=== PATIENT | female | born 1965 | race Caucasian/White ===

== ENCOUNTER 2025-04-11 20:58 | Emergency (ER) | payer OTHER, SELFPAY ==
--- NOTE | ~2025-04-11 | CT_ITS ---
CLINICAL HISTORY: LLQ pain, hx stones CT abdomen and pelvis without contrast Comparison: None provided Findings: CT abdomen: No focal areas of consolidation within the lung bases. Bones are osteopenic. No acute fracture. [id number] convex left upper lumbar curvature. Patient has undergone prior sternotomy. Dense calcification of the mitral valve and coronary arteries. Dense vascular calcification extends into the thoracic aorta, abdominal aorta, renal arteries, mesenteric arteries, and iliac arteries. 6 mm densely calcified dependent gallstone within the gallbladder without gallbladder wall thickening or pericholecystic fluid. No focal hepatic lesion on the unenhanced exam. No focal splenic lesions. No pancreatic lesion. Right kidney is surgically absent. Bowel loops are seen within the nephrectomy bed. Adrenal glands are unremarkable. Compensatory hypertrophy of the left kidney. There is moderate left hydronephrosis with parapelvic cysts. 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 Several small stones are seen within the left kidney measuring up to 4 mm in size. No perinephric stranding. No ureteral calculi. No free air. CT pelvis: Moderate fluid distention of the stomach. There are fluid-filled loops of nondilated small bowel throughout the abdomen and pelvis with small bowel wall thickening. Liquid stool seen throughout the colon extending from the cecum to the rectum. Scattered diverticuli within the colon without findings of diverticulitis. IMPRESSION: 1. Several left renal calculi without acute obstructive phenomenon. No left ureteral calculi. 2. Surgically absent right kidney. 3. Fluid-filled large and small bowel throughout the abdomen and pelvis most characteristic of an infectious or inflammatory enterocolitis. This document has been electronically signed by: Mike Botello MD on 04/12/2025 00:52:30
[2025-04-11 21:02] VITALS: BP 146/63; PULSE 114; RESP 22; TEMP 36.6; O2SAT 100; BMI 22.1
--- NOTE | 2025-04-11 21:25 | ECG_ITS ---
Test Reason : tachy Blood Pressure : */* mmHG Vent. Rate : 95 BPM Atrial Rate : 95 BPM P-R Int : 148 ms QRS Dur : 88 ms QT Int : 362 ms P-R-T Axes : 77 91 3 degrees QTcB Int : 454 ms Normal sinus rhythm Right atrial enlargement Rightward axis Left ventricular hypertrophy with repolarization abnormality ( Sokolow-Caldwell , Romhilt-Fabian ) Abnormal ECG No previous ECGs available Referred By: Emma Rosario Electronically Signed By: Saravanan Patten
[2025-04-11 21:41] LABS: Hematocrit 47.3 % (37.0-47.0); Hemoglobin 15.0 g/dl (12.0-16.0); Imm Gran Abs Auto 0.05 X10*3/uL (0.00-0.03); Imm Gran Pct Auto 0.4 % (0.0-0.4); Lymphocytes Absolute Auto 2.0 X10*3/uL (1.2-4.9); MANUAL DIFF FLAG NO; Mean Corpuscular HGB Conc 31.7 g/dl (31.0-35.0); Mean Corpuscular Hemoglobin 28.4 pg (27.0-33.0); Mean Corpuscular Volume 89.6 fL (80.0-98.0); NRBC Abs Auto 0.000 X10*3/uL (0.0-0.012); NRBC Pct Auto 0.0 /100WBC (0.0-0.2); Platelet Count 246 X10*3/uL (160-400); Red Blood Count 5.28 X10*6/uL (4.20-5.50); White Blood Count 13.1 X10*3/uL (4.8-10.8)
[2025-04-11 22:00] LABS: Anion Gap 17 (12-20); Blood Urea Nitrogen 37 mg/dL (9-16); Calcium 10.9 mg/dL (8.4-10.2); Carbon Dioxide 26 mmol/L (22-29); Chloride 106 mmol/L (96-108); Creatinine Clr Calc Pharmacy 26.4; Estimated Glomerular Filt Rate 27; Potassium 5.2 mmol/L (3.3-5.1); Sodium 144 mmol/L (135-145)
[2025-04-11 22:07] LABS: Alanine Aminotransferase 29 U/L (0-31); Albumin Level 5.1 g/dL (3.5-5.0); Alkaline Phosphatase 126 U/L (39-117); Aspartate Amino Transferase 33 U/L (5-31); Total Protein 8.5 g/dL (6.5-8.0)
[2025-04-11] MEDS: Lactated Ringers 1,000 ML 999 ML IV (22:08)
--- OUTSIDE RECORDS SUMMARY | 2025-04-11 22:12 | XMS_ITS | Encounter Summary ---
Author Organization [facility] Address [address] [place] [address] Care Team Providers Care Ramp Agent Name Role Phone Henok Juarez Primary Care Provider Reason for Visit * Reason Onset Date Comments Other 07/23/2022 24 hours urine Encounter Details Date Type Department Care Team (Late st Contact Info) Description 07/23/2022 Telephone [facility] Doctors Urology [place] [address] [place] [address] [phone] Noel Nieto MD [address] [place], [place] [phone] Other (24 hours urine ) Social History Tobacco Use Types Packs/Day Years Used Date Smoking Tobacco: Never Smokeless Tobacco: Never Alcohol Use Standard Drinks/Week Comments Yes 0 (1 standard drink = 0.6 oz pur e alcohol) social PRAPARE - Transportation Answer Date Re corded In the past 12 months, has l ack of transportation kept you from medical appointments or from getting medications? No 07/2021 In the past 12 months, has l ack of transportation kept you from meetings, work, or from getting things needed for daily living? No 04/09/2022 Food Insecurity Answer Date Recorded Worried About Running Out of Food in the Last Ye ar Not on file 03/14/2022 Ran Out of Food in the Last Year Not on file 03/14/2022 Do you have any concerns reg arding your ability to purchase food for yourself and/or your family? Never true 03/14/2022 Comments No Sex and Gender Information Value Date Recorded Sex Assigned at Female 03/08/2022 1:04 PM EDT Legal Sex Female 3:04 AM EST Gender Identity Female 03/08/2022 1:04 PM EDT Sexual Orientation Straight 04/08/2022 10 :16 PM EDT documented as of this encounter Functional Status * Communicable Disease Screening Question Answer Date of Assessment Author Status Do you have any of the following symptoms? Unable to Assess 07/24/2022 8:44 AM EST Nell Smith Active * Is the person deaf or does he/she have serious difficulty hearing? Answer Date of Assessment Author Status No 05/25/2022 6:[address] Bahena RN Active * Is this person blind or does he/she have serious difficulty seeing even when wearing glasses? Answer Date of Assessment Author Status No 05/25/2022 6:[address] Hager RN Active * Does this person have serious difficulty walking or climbing stairs? Answer Date of Assessment Author Status No 05/25/2022 6:[address] Hager RN Active * Does this person have difficulty dressing or bathing? Answer Date of Assessment Author Status No 05/25/2022 6:[address] Hager RN Active * Because of a physical, mental, or emotional condition, does this person have difficulty doing errands alone such as visiting a doctor's office or shopping? Answer Date of Assessment Author Status No 05/25/2022 6:[address] Hager RN Active documented as of this encounter Mental Status * Because of a physical, mental, or emotional condition, does this person have serious difficulty concentrating, remembering, or making decisions? Answer Entry Date Author Status No 05/25/2022 6:[address] Hager RN Active documented in this encounter Progress Notes * Stefany Shin - 07/23/2022 9:30 AM EST Provider: Noel John Patient: Kellie Plata Call back number: [phone] Patient Is calling to state she sent in the 24 hour urine test and hasn't heard anything about the results in a few weeks. Patient would like to know if results were received and what her next steps are. Please advise ???Caller advised of the turnaround time of 3 business days?? documented in this encounter Plan of Treatment Not on file documented as of this encounter Visit Diagnoses Not on filedocumented in this encounter Care Teams Ramp Agent Relationship Specialty Start Date End Date Henok Juarez PCP - General 11/15/21 documented as of this encounter
--- OUTSIDE RECORDS SUMMARY | 2025-04-11 22:12 | XMS_ITS | Clinical Summary ---
Author Organization [facility], [facility], and [facility] Address [address] [place] [address] [place] [address] Care Team Providers Care Clinical Mental Health Counselor Name Role Phone Grant Saldana MD Unavailable [phone] Allergies Active Allergy Reactions Criticality Noted Date Comments Statins Muscle pain Low 04/20/2023 Medications apixaban 5 MG TabletIndication s:Anticoagulant Therapy Take 1 tablet (5 mg) by mouth 2 Times a Day for 30 days. 60 tablet 07/03/2023 Active aspirin 81 MG Tablet ChewableIndicati ons:Cardiovascul ar Risk Reduction Take 1 tablet (81 mg) by mouth Daily for 30 days. 30 tablet 07/03/2023 Active ezetimibe 10 MG TabletIndication s:Hyperlipidemia Take 1 tablet (10 mg) by mouth Daily for 30 days. 30 tablet 07/03/2023 Active levothyroxine 112 MCG TabletIndication s:Hypothyroidism Take 1 tablet (112 mcg) by mouth Daily for 30 days. 30 tablet 07/03/2023 Active famotidine 20 MG TabletIndication s:Stress Ulcer Prophylaxis Take 1 tablet (20 mg) by mouth Daily for 30 days. 30 tablet 07/04/2023 Active metoprolol succinate 100 MG Tablet ER 24 HourIndications: Hypertension Take 1 tablet (100 mg) by mouth Nightly for 30 days. 30 tablet 07/03/2023 Active furosemide (LASIX) 20 MG TabletIndication s:Edema Take 1 tablet (20 mg) by mouth Daily for 7 days. 7 tablet 07/03/2023 Active Active Problems Problem Noted Date Diagnosed Date S/P CABG x 4 06/26/2023 CKD (chronic kidney disease) 06/26/2023 Chronic a-fib 06/26/2023 Acquired hypothyroidism 06/26/2023 Resolved Problems Problem Noted Date Diagnosed Date Resolved Date SU (acute kidney injury) 06/28/2023 Acute post-operative pain 06/28/2023 Coronary artery disease, uns pecified vessel or lesion type, unspecified whether angina present, unspecified whether [place] or transplanted heart 06/26/2023 07/03/2023 Peripheral vasodilation 06/26/202306/09 Acute pulmonary insufficiency 06/26/2023 07/03/2023 Coronary artery disease 04/10/202306/09 Family History Medical History Relation Comments CAD Paternal Grandfather Relation Status Comments Paternal Grandfather Social History Tobacco Use Types Packs/Day Years Used Date Smoking Tobacco: Never Smokeless Tobacco: Never Tobacco Cessation:Counseling Given: Not Answered Alcohol Use Standard Drinks/Week Comments Not Currently 0 (1 standard drink = 0.6 oz pur e alcohol) social [employer] Utilities Answer Date Recorded In the past 12 months has th e electric, gas, oil, or water company threatened to shut off services in your home? No 07/03/2023 Hunger Vital Sign Answer Date Recorded Within the past 12 months, y ou worried that your food would run out before you got the money to buy more. Never true 07/03/19 24 Within the past 12 months, t he food you bought just didn't last and you didn't have money to get more. Never true 07/03/2023 PRAPARE - Transportation Answer Date Re corded In the past 12 months, has l ack of transportation kept you from medical appointments or from getting medications? No 07/03/2023 Lack of Transportation (Non-Medical) Not on file 07/03/2023 Housing Stability Vital Sign Answer Bi e Recorded Unable to Pay for Housing in the Last Year Not o n file 07/03/2023 Number of Places Lived in the Last Year Not on f ile 07/03/2023 In the last 12 months, was t here a time when you did not have a steady place to sleep or slept in a half-way (including now)? No 07/03/2023 Comments No Sex and Gender Information Value Date Recorded Sex Assigned at Not on file Legal Sex Female 9:53 AM EDT Gender Identity Not on file Sexual Orientation Not on file Last Filed Vital Signs Vital Sign Reading Time Taken Comments Blood Pressure 144/61 07/03/2023 12:00 PM EST Pulse 90 07/03/2023 9:00 AM EST Temperature 36.5 C (97.7 F) 07/03/2023 12:13 PM EST Respiratory Rate 18 07/03/2023 12:00 PM EST Oxygen Saturation 98% 07/03/2023 12:00 PM EST Inhaled Oxygen Concentration - - Weight 54.8 kg (120 lb 13 oz) 07/03/2023 5:00 AM EST Height 162.6 cm (5' 4.02 ) 06/26/2023 4:00 PM ES T Body Mass Index 20.73 06/26/2023 4:00 PM EST Plan of Treatment Health Maintenance Due Date Last Done Comments HIV SCREENING 1976 Hepatitis C screening 1981 IMM: DTap/ Tdap/ Td (1 - Tdap) 1982 Pneumococcal Vaccine: 50+ Years (1 of 2 - PCV) 1982 Cervical Cancer Screening 1993 HPV/Cotest 1993 Pap Smear 1993 Screening Mammography for Breast Cancer 2003 Cologuard 2008 Colonoscopy 2008 Colorectal Cancer Screening 2008 FOBT/FIT 2008 Flex-Sigmoidoscopy or CT Colonography 2008 IMM: Zoster Vaccine (Shingles) (1 of 2) 2013 IMM: RSV (1 - Risk 60-74 years 1-dose series) 2023 COVID-19 Vaccine ( season) 2025 04/11/2021, 07/02/2020, 06/05/2020 IMM: Influenza (#1) 2025 05/22/2021, 03/26/2020, 04/05/2019, Additional history exists LIPID SCREENING 07/02/2028 07/02/2023, 07/01/2023 IMM: Meningococcal B Aged Out No long er eligible based on patient's age to complete this topic Medical Devices Implanted Type Area Desk Director Device Identifier Shelf Expiration Date Model / Serial / Lot Device Closure Proglide 6f With Revised Suture ([id number]) - [id number] - [id number] Implanted:Qty: 1 on 04/22/2023 by Angie Martinez MD at [facility] Implant [employer] [facility] 04/22/2026 [id number] / [id number] / [id number] Procedures Procedure Name Priority Date/Time Associated Diagnosis Comments LIPID PROFILE DAILY DRAW 07/02/2023 8:03 AM EST from Last 3 Months or Most Recently Relevant to Health Maintenance Results * (ABNORMAL) LIPID PROFILE (07/02/2023 8:03 AM EST) Cholesterol Total 183 mg/dL 024 10:51 AM EST [facility] Comment: The National Cholesterol Education Program classifies cholesterol levels as: < 200 mg/dl Desirable 200 - 239 mg/dl Borderline High > 239 mg/dl High Triglyceride 338(H) <=149 mg/dL 07/02/2023 10:51 AM EST [facility] HDL Cholesterol 34(L) 40 - 60 mg/dL 07/02/2023 10:51 AM EST [facility] Comment: HDL <40mg/dL Low HDL >=60mg/dL High LDL Cholesterol 81 mg/dL 10:51 AM EST [facility] Comment:Ranges depend on ind ividual patient factors; see 2013 ACC/AHA Guideline on the Treatment of Blood Cholesterol. Chol HDL Ratio 5.4(H) 0.0 - 4.9 07/02/2023 10:51 AM EST [facility] Blood 07/02/2023 8:03 AM EST 07/02/2023 9:47 AM EST Narrative Resulting Agency Comment LIPID Grant Saldana MD LAB-CHEMISTRY Final Result [facility] [address] [address] [facility] [address] [address] from Last 3 Months or Most Recently Relevant to Health Maintenance Insurance JULI FUNK Care Teams Clinical Mental Health Counselor Relationship Specialty Start Date End Date Grant Saldana MD [address] [place] [id number] Surgery - Cardiothoracic - Cardiac 05/16/23
--- OUTSIDE RECORDS SUMMARY | 2025-04-11 22:12 | XMS_ITS | Encounter Summary ---
Author Organization [facility] Address [address] [place] [address] Care Team Providers Care Automotive Window Tinter Name Role Phone Henok Juarez Primary Care Provider [phone] Reason for Visit * Reason Onset Date Comments Other 06/17/[address] ABD/PEL WO IV OR [place] Encounter Details Date Type Department Care Team (Late st Contact Info) Description 06/17/2022 Telephone [facility] Doctors Urology [place] [address] [place], [place] [phone] Noel Nieto MD [address] [place], [place] [phone] Other (Auth needed for CT ABD/PEL WO IV OR [place] ) Social History Tobacco Use Types Packs/Day [...] you have any of the following symptoms? None of these 06/18/2022 9:02 AM EST Linnette Cortez Active * Is the person deaf or [...] documented in this encounter Progress Notes * Fang Helton MA - 06/17/2022 11:20 AM EST auth number [id number] exp 07/16/22 * Stefany Shin - 06/17/2022 9:24 AM EST Provider: Noel John Patient: Kellie Plata Call back number: [phone] Caller: urszula [id number] Urszula pre reg Is calling to state the procedure CT ABD/PEL WO IV [place] needs auth [id number] sched for 06/18. Procedure was put in as no auth needed without any notes. Pre reg needs notes if no auth isneeded. Urszula states he spoke with tod from [facility] and they state auth is needed. Please advise ???Caller advised of the turnaround time of 3 business days?? documented in this encounter Plan of Treatment Not on file documented as of this encounter Visit Diagnoses Not on filedocumented in this encounter Care Teams Automotive Window Tinter Relationship Specialty Start Date End Date Henok Juarez PCP - General 11/15/21 documented as of this encounter
--- OUTSIDE RECORDS SUMMARY | 2025-04-11 22:12 | XMS_ITS | Clinical Summary ---
Author Organization [facility] Address [address] [place] [address] Care Team Providers Care Electric Meter Setter Name Role Phone Henok Juarez Primary Care Provider [phone] Allergies Active Allergy Reactions Criticality Noted Date Comments Statins Other (See Comments) 03/18/2022 Arthritis like limbs Sulfamethoxazole 02/19/2012 Trimethoprim 02/19/2012 Medications carvedilol (COREG) 3.125 MG tablet Take 6.25 mg by mouth in the morning and 6.25 mg in the evening. Take with meals. Active levothyroxine (SYNTHROID, LEVOTHROID) 112 MCG tablet Take by mouth daily before breakfast. Active ezetimibe (ZETIA) 10 MG tablet Take 10 mg by mouth in the morning. Active Alirocumab (PRALUENT) 150 MG/ML SOAJ Inject 150 mcg into the skin. Active aspirin 81 MG EC tablet Take 81 mg by mouth in the morning. Active Active Problems Problem Noted Date Diagnosed Date New onset a-fib 04/09/2022 Elevated troponin 04/09/2022 Hyperlipemia 04/09/2022 Demand ischemia 04/09/2022 Atrial fibrillation with RVR 04/09/2022 Solitary kidney, acquired 04/09/2022 H/O heart artery stent 03/14/2022 Preop exam for internal medicine 03/14/2022 Hydronephrosis with renal calculous obstruction 03/08/2022 Chest pain 02/07/2022 S/P cardiac catheterization 02/07/2022 Nonrheumatic aortic valve stenosis 01/27/2022 CAD (coronary artery disease) 08/21/2020 Familial hypercholesteremia 08/17/2020 Hypothyroidism 01/27/2019 Family History Medical History Relation Comments Heart disease Brother Heart disease Father Peripheral vascular disease Mother Relation Status Comments Brother Alive Daughter Alive adopted both chi ldren. Father Mother Alive Sister Alive Son Alive Social History Tobacco Use Types Packs/Day Years [...] Orientation Straight 04/08/2022 10 :16 PM EDT Last Filed Vital Signs Vital Sign Reading Time Taken Comments Blood Pressure 139/87 05/25/2022 12:43 PM EST Pulse 88 05/25/2022 12:43 PM EST Temperature 37.4 C (99.3 F) 05/25/2022 12:43 PM EST Respiratory Rate 16 05/25/2022 12:43 PM EST Oxygen Saturation 100% 05/25/2022 12:43 PM EST Inhaled Oxygen Concentration - - Weight 57.2 kg (126 lb) 05/25/2022 12:43 PM EST Height 160 cm (5' 3 ) 05/25/2022 12:43 PM EST Body Mass Index 22.32 05/25/2022 12:43 PM EST Plan of Treatment Health Maintenance Due Date Last Done Comments COLON CANCER SCREENING 10 YE AR COLONOSCOPY 1963 Cervical Cancer Screening 5 Year 1963 FIT-DNA 1963 MMR Vaccines (1 of 1 - Standard series) 1964 DTaP/Tdap/Td Vaccines (1 - Tdap) 1982 BREAST CANCER SCREENING EVER Y 2 YEARS 2003 Zoster Vaccine (1 of 2) 2013 COVID-19 Vaccine (4 - 2024-2 6 season) 2025 04/11/2021, 07/02/2020, 06/05/2020 Influenza Vaccine (#1) 2025 RSV Vaccine , or 60 years and older (1 - 1-dose 75+ series) 2038 HIB Vaccines Aged Out No longer eligi ble based on patient's age to complete this topic HPV Vaccine (No Doses Required) Completed Hepatitis A Vaccines Aged Out No long er eligible based on patient's age to complete this topic Hepatitis B Vaccines Aged Out No long er eligible based on patient's age to complete this topic IPV Vaccines Aged Out No longer eligi ble based on patient's age to complete this topic Meningococcal B Vaccine Aged Out No l onger eligible based on patient's age to complete this topic Meningococcal Vaccine Aged Out No lit joaquina eligible based on patient's age to complete this topic Pneumococcal Vaccine: Pediatrics (0 to 5 Years) and At-Risk Patients (6 to 64 Years) Aged Out No longer eligible b ased on patient's age to complete this topic Rotavirus Vaccine Aged Out No longer eligible based on patient's age to complete this topic Medical Devices Implanted Type Area Pie Maker Machine Device Identifier Shelf Expiration Date Model / Serial / Lot Synergy Xd Mr Us [id number] - [id number] Implanted:Qty: 1 on 02/07/[address] Lang MD at [facility] Drug Eluting Stent [employer] 07/11/2022 [id number] / / [id number] Synergy Xd Mr Us [id number] - [id number] Implanted:Qty: 1 on 02/07/[address] Lang MD at [facility] Drug Eluting Stent [employer] 08/01/2022 [id number] / / [id number] Explanted Type Area Pie Maker Machine Device Identifier Shelf Expiration Date Model / Serial / Lot Stent Ureteral [id number] Universa Soft Set Monofilament Tether Hydrophilic Coating [[id number]] - [id number] Implanted:Qty: 1 on 03/08/2022 by Noel Nieto MD at [facility] Explanted:Qty: 1 on 03/18/2022 at [facility] Left: Ureter [employer] 12/23/2024 [id number] / / [id number] Insurance CARE Advance Directives For more information, please contact: [phone] * Full Code (Latest Code Status on File) Date Activated Date Inactivated Comments 04/09/2022 3:54 AM 04/09/2022 4:47 PM * Full Code Date Activated Date Inactivated Comments 03/08/2022 2:41 PM 03/09/2022 3:43 PM * Full Code Date Activated Date Inactivated Comments 02/07/2022 5:37 PM 02/08/2022 2:37 PM Healthcare Agents on File Name Relationship Healthcare Agent [facility] Communication Dayo Plata Spouse Health Care Agent Care Teams Electric Meter Setter Relationship Specialty Start Date End Date Henok Juarez PCP - General 11/15/21
--- OUTSIDE RECORDS SUMMARY | 2025-04-11 22:12 | XMS_ITS | Encounter Summary ---
Author Organization [facility] Address [address] [place] [id number] Care Team Providers Care Tabulating Clerk Name Role Phone Henok Juarez Primary Care Provider [phone] Reason for Visit * Reason Onset Date Comments Other 03/11/2022 Encounter Details Date Type Department Care Team (Late st Contact Info) Description 03/11/2022 Telephone [facility] Doctors [facility] [place] [address] [place] [id number] Noel Nieto MD [address] [place] [id number] Other Social History Tobacco Use Types Packs/Day Years Used Date Smoking Tobacco: Never Smokeless Tobacco: Never Alcohol Use Standard Drinks/Week Comments Not Currently 0 (1 standard drink = 0.6 oz pur e alcohol) Food Insecurity Answer Date Recorded Worried About [...] as of this encounter Functional Status * Question Answer Date of Assessment Author Status Living Status With Spouse 03/14/2022 9:01 AM EDT Clara Moyer, RN Active Support Systems Family Members 03/14/2022 9:01 AM Marifer Klein RN Active Assistance Needed no 03/14/2022 9:01 AM Marifer Aguirre RN Active Patient expects to be discharged to: home 03/14/2022 9:01 AM Marifer Aguirre RN Active * Contrast Pre-Assessment Question Answer Date of Assessment Author Status History of Allergy Reaction no 03/13/2022 4:13 PM EDT Deshawn Mane RN Active Premedication Required No 03/13/2022 4:13 PM EDT Deshawn Le RN Active * CAGE-AID Questionnaire Question Answer Date of Assessment Author Status Have you ever felt that you ought to cut down on your drinking or drug use? 0 03/14/2022 9:09 AM Marifer Aguirre RN A ctive Have people annoyed you by criticizing your drinking or drug use? 0 03/14/2022 9:09 AM Marifer Aguirre RN Active Have you ever felt bad or guilty about your drinking or drug use? 0 03/14/2022 9:09 AM Marifer Aguirre RN Active Have you ever had a drink or used drugs first thing in the morning to steady your nerves or to get rid of a hangover? 0 03/14/2022 9:09 AM Demetri Aguirre RN Active Able to Assess Patient for CAGE-AID Screening? Yes 03/14/2022 9:09 AM Marifer Aguirre RN Act matt CAGE-AID Score 0 03/14/2022 9:09 AM Clara Aguirre RN Active * Question Answer Date of Assessment Author Status BP 131/75 03/14/2022 9:02 AM Marifer Aguirre RN Active Temp 98.2 03/14/2022 9:02 AM Marifer Aguirre RN Active Temp src Oral 03/14/2022 9:02 AM Marifer Aguirre RN Active Pulse 92 03/14/2022 9:02 AM Marifer Aguirre RN Active Resp 20 03/14/2022 9:02 AM Marifer Aguirre RN Active Heart Rate Source Monitor 03/14/2022 9:02 AM Marifer Aguirre RN Active BP Location Right Arm 03/14/2022 9:02 AM Demetri Aguirre RN Active BP Method Automatic 03/14/2022 9:02 AM Marifer Aguirre RN Active Patient Position Sitting 03/14/2022 9:02 AM Marifer Aguirre RN Active * Oxygen Therapy Question Answer Date of Assessment Author Status SpO2 100 03/14/2022 9:02 AM Marifer Aguirre RN Active O2 Device None (Room air) 03/14/2022 9:02 AM Marifer Aguirre RN Active * Height and Weight Question Answer Date of Assessment Author Status Height 63 03/14/2022 9:02 AM Marifer Aguirre RN Active Weight 1970 03/14/2022 9:02 AM Marifer Aguirre RN Active Weight Method Standing 03/14/2022 9:02 AM Hugh Aguirre RN Active * Psychosocial Question Answer Date of Assessment Author Status Psychosocial (WDL) WDL 03/14/2022 9:09 AM Marifer Moraes RN Active * Cardiac Question Answer Date of Assessment Author Status Cardiac (WDL) WDL 03/14/2022 9:09 AM Hugh Aguirre RN Active * Respiratory Question Answer Date of Assessment Author Status Respiratory (WDL) WDL 03/14/2022 9:09 AM Marifer Aguirre RN Active * Charting Type Question Answer Date of Assessment Author Status Charting Type PST assessment 03/14/2022 9:09 AM Marifer Aguirre RN Active * Advance Directives (For Healthcare) Question Answer Date of Assessment Author Status Is patient an organ donor? No 03/14/2022 9:11 AM Marifer Aguirre RN Active Healthcare Advance Directive No, patient does not have an advance directive for healthcare treatment 03/14/2022 9:11 AM Marifer Aguirre RN Active Information Provided to Patient/Family Member, on Healthcare Advance Directives No 03/14/2022 9:11 AM Marifer Aguirre RN Active * Retired Screening (Read-Only) Use New Nutrition Screen below Question Answer Date of Assessment Author Status Poor Oral Intake for Four or More Days Prior to Admission 2 03/14/2022 9:09 AM Demetri Aguirre RN Active Pressure Ulcer or Non-Healin g Wound Stage 2 or Greater 2 03/14/2022 9:09 AM Marifer Aguirre R N Active Prior Bariatric Surgery? No 03/14/2022 9:09 AM Marifer Aguirre RN Active * Abuse Assessment Screen (Conduct in private if possible) Question Answer Date of Assessment Author Status Physical Abuse/Neglect Denies 03/14/2022 9:09 AM Marifer Romero RN Active Verbal/Emotional Abuse Denies 03/14/2022 9:09 AM Marifer Romero RN Active * Neurological Question Answer Date of Assessment Author Status Neuro (WDL) WDL 03/14/2022 9:09 AM Demetri Aguirre RN Active * Assistive Devices Question Answer Date of Assessment Author Status Assistive Devices Commode 03/14/2022 9:09 AM Marifer Aguirre RN Active * Pre Procedure COVID-19 Screening Call Question Answer Date of Assessment Author Status Symptomatic, NOT tested? No 03/14/2022 8:54 AM Marifer Aguirre RN Active COVID-19 TEST + No 03/14/2022 8:54 AM Marifer Aguirre RN Active * Values / Beliefs Question Answer Date of Assessment Author Status Do You Wish To Declare A Sikhism? Religious 03/14/2022 9:09 AM Marifer Aguirre RN Active * Question Answer Date of Assessment Author Status Do you feel safe at home? 1 03/14/2022 9:00 AM Marifer Lovell RN Active * Communicable Disease Screening Question Answer Date of Assessment Author Status Do you have any of the following symptoms? None of these 03/14/2022 8:00 AM EDT Arminda Lewis Activ e * ADL Screening Question Answer Date of Assessment Author Status Dressing Independent 03/14/2022 9:09 AM Demetri Aguirre RN Active Toileting Independent 03/14/2022 9:09 AM Demetri Aguirre RN Active Transfers Independent 03/14/2022 9:09 AM Demetri Aguirre RN Active Ambulation Independent 03/14/2022 9:09 AM Demetri Aguirre RN Active * Question Answer Date of Assessment Author Status Does patient report a history of MDRO? No 03/14/2022 8:54 AM Marifer Aguirre RN Active Patient's description of admission reason kidney stones 03/14/2022 8:54 AM Marifer Aguirre RN Active Patient's Preferred Language? Swedish 03/14/2022 8:54 AM Marifer Aguirre RN Active Does patient need a language instructor? No 03/14/2022 8:54 AM Marifer Aguirre RN A ctive * Pneumococcal Vaccine Screen - Year Round Question Answer Date of Assessment Author Status Have you had a previous pneumonia vaccine? No 03/13/2022 4:14 PM Deshawn Mccall RN Act matt * Influenza Vaccine Screen - February 06 through November 05 Question Answer Date of Assessment Author Status Have you received the Influenza vaccine during the current flu season? No 03/13/2022 4:14 PM Deshawn Mccall RN Ac tive Does patient wish to receive vaccine? No 03/13/2022 4:14 PM Deshawn Mccall RN Active * Post Visit Call Information Question Answer Date of Assessment Author Status Phone number we can reach you? [phone] 03/14/2022 9:01 AM Marifer Aguirre RN Active Can we leave a message? Yes 03/14/2022 9:01 AM Marifer Aguirre RN Active * Blood Product Screening Question Answer Date of Assessment Author Status Does patient refuse blood products? No 03/14/2022 9:09 AM Marifer Aguirre RN Active * COVID Vaccine Screen Question Answer Date of Assessment Author Status Have you received the COVID vaccine? Yes 03/13/2022 4:14 PM Deshawn Mccall RN Active * Percent Weight Change Since Answer Date of Assessment Author Status 0 03/14/2022 9:02 AM Marifer Aguirre RN Active * Pain Assessment/Reassessment Question Answer Date of Assessment Author Status Pain Score 0 - No pain 03/14/2022 9:02 AM Demetri Aguirre RN Active Patient's Stated Pain Goal 5 03/14/2022 9:02 AM Marifer Aguirre RN Active Pain Assessment Tool Used? 0-10 03/14/2022 9:02 AM Marifer Aguirre RN Active * Daily Weight Change (g) Answer Date of Assessment Author Status 0 03/14/2022 9:02 AM Marifer Aguirre RN Active * Is the person deaf or does he/she have serious difficulty hearing? Answer Date of Assessment Author Status No 03/09/2022 12:33 PM Galdino Mcmanus RN A ctive * Is this person blind or does he/she have serious difficulty seeing even when wearing glasses? Answer Date of Assessment Author Status No 03/09/2022 12:33 PM Galdino Mcmanus RN A ctive * Does this person have serious difficulty walking or climbing stairs? Answer Date of Assessment Author Status No 03/09/2022 12:33 PM Galdino Mcmanus RN A ctive * Does this person have difficulty dressing or bathing? Answer Date of Assessment Author Status No 03/09/2022 12:33 PM Galdino Mcmanus RN A ctive * Because of a physical, mental, or emotional condition, does this person have difficulty doing errands alone such as visiting a doctor's office or shopping? Answer Date of Assessment Author Status No 03/09/2022 12:33 PM Galdino Mcmanus RN A ctive * Assistive Devices Question Answer Date of Assessment Author Status Assistive Devices Commode 03/14/2022 9:09 AM Marifer Aguirre RN Active * Question Answer Date of Assessment Author Status Dressing Independent 03/14/2022 9:09 AM Demetri Aguirre RN Active Toileting Independent 03/14/2022 9:09 AM Demetri Aguirre RN Active Transfers Independent 03/14/2022 9:09 AM Demetri Aguirre RN Active Ambulation Independent 03/14/2022 9:09 AM Demetri Aguirre RN Active * Pain Assessment/Reassessment Question Answer Date of Assessment Author Status Pain Score 0 - No pain 03/14/2022 9:02 AM Demetri Aguirre RN Active Pain Assessment Tool Used? 0-10 03/14/2022 9:02 AM Marifer Aguirre RN Active documented as of this encounter Mental Status * Question Answer Entry Date Author Status Site verified? Yes 03/14/2022 9:26 AM Marifer Aguirre RN Active Verify Patient's Name and Yes 03/14/2022 9:26 AM Marifer Aguirre RN Active Consents verified? No 03/14/2022 9: 26 AM Marifer Aguirre RN Active Name of physician/ clinician doing procedure Noel Nieto J 03/14/2022 9:26 AM Marifer Aguirre RN Active Procedure Laterality Left 03/14/2022 9:26 AM Marifer Aguirre RN Active Name of Procedure CYSTOSCOPY, LEFT URETEROSCOPY, STONE EXTRACTION, STENT PLACEMENT, POSSIBLE LITHOTRIPSY 03/14/2022 9:26 AM Marifer Aguirre RN Active * Question Answer Entry Date Author Status BP 131/75 03/14/2022 9:02 AM Marifer Aguirre RN Active Temp 98.2 03/14/2022 9:02 AM Marifer Aguirre RN Active Temp src Oral 03/14/2022 9:02 AM Marifer Aguirre RN Active Pulse 92 03/14/2022 9:02 AM Marifer Aguirre RN Active Resp 20 03/14/2022 9:02 AM Marifer Aguirre RN Active * Oxygen Therapy Question Answer Entry Date Author Status SpO2 100 03/14/2022 9:02 AM Marifer Aguirre RN Active O2 Device None (Room air) 03/14/2022 9:02 AM Marifer Aguirre RN Active * Question Answer Entry Date Author Status Height 63 03/14/2022 9:02 AM Marifer Aguirre RN Active Weight 1970 03/14/2022 9:02 AM Marifer Aguirre RN Active * Respiratory Question Answer Entry Date Author Status Respiratory (WDL) WDL 03/14/2022 9:09 AM Marifer Aguirre RN Active * Neurological Question Answer Entry Date Author Status Neuro (WDL) WDL 03/14/2022 9:09 AM Demetri Aguirre RN Active * Intimate Partner Violence Question Answer Entry Date Author Status Have you ever reported possible abuse? 8 03/14/2022 9:00 AM Marifer Aguirre RN Active Is there anything else you'd like to add or ask while we're on this topic? No 03/14/2022 9:00 AM Marifer Aguirre RN Active Provider must notifiy the Domestic Violence Coordinator if the pt identifies as a suspected or confirmed victim of domestic violence No 03/14/2022 9:00 AM Marifer Aguirre RN Ac tive Do you feel safe at home? 1 03/14/2022 9:00 AM Marifer Lovell RN Active Has anyone ever been physically or emotionally violent towards you? No 03/14/2022 9:00 AM Marifer Aguirre RN Ac tive Has anybody forced you to do something sexual that you didn't want to do? No 03/14/2022 9:00 AM Marifer Aguirre RN Acti ve What about hitting, kicking, choking, or physically hurting you? No 03/14/2022 9:00 AM Marifer Aguirre RN Active Is there anyone in your life now who is threatening or hurting you? No 03/14/2022 9:00 AM Marifer Aguirre RN Active * Question Answer Entry Date Author Status Does patient report a histor y of MDRO? No 03/14/2022 8:54 AM Marifer Aguirre RN Active Patient's Preferred Language? Swedish 03/14/2022 8:54 A M Marifer Aguirre RN Active Does patient need a language instructor? No 03/14/2022 8:54 AM Marifer Aguirre RN Active * Food Insecurity Question Answer Entry Date Author Status Do you have any concerns regarding your ability to purchase food for yourself and/or your family? No 03/14/2022 9:00 AM Marifer Aguirre RN Act matt * Pain Assessment/Reassessment Question Answer Entry Date Author Status Pain Score 0 - No pain 03/14/2022 9:02 AM Marifer Aguirre RN Active Patient's Stated Pain Goal 5 03/14 9:02 AM Marifer Aguirre RN Active Pain Assessment Tool Used? 0-10 03/14 9:02 AM EDT Marifer Moyer RN Active * Because of a physical, mental, or emotional condition, does this person have serious difficulty concentrating, remembering, or making decisions? Answer Entry Date Author Status No 03/09/2022 12:33 PM EDT Galdino Sosa RN A ctive documented in this encounter Progress Notes * Monica Denton - 03/11/2022 3:38 PM EDT Patient was scheduled for procedure 03/18/2022 with documented in this encounter Plan of Treatment Not on file documented as of this encounter Visit Diagnoses Not on filedocumented in this encounter Additional Health Concerns Infection Onset Date Last Indicated Resolved Time COVID-19 (Exposure) Comment:Patient was exposed to covid on 04/09/22 04/10/2022 04/10/2022 04/17/2022 12:51 AM EST documented as of this encounter Care Teams Tabulating Clerk Relationship Specialty Start Date End Date Henok Juarez PCP - General 11/15/21 documented as of this encounter
--- OUTSIDE RECORDS SUMMARY | 2025-04-11 22:12 | XMS_ITS | Encounter Summary ---
Author Organization [facility] Address [address] [place] [id number] Care Team Providers Care Insurance Biller Name Role Phone Henok Juarez Primary Care Provider [phone] Reason for Visit * Reason Onset Date Comments Other 03/11/2022 Pending MRI/ Sta t status please Encounter Details Date Type Department Care Team (Late st Contact Info) Description 03/11/2022 Telephone [facility] Doctors Urology [place] [address] [place] [address] [id number] Noel Nieto MD [address] [place] [address] Other (Pending MRI/ Stat status please) Social History Tobacco Use Types Packs/Day Years [...] Living Status With Spouse 03/14/2022 9:01 AM Clara Aguirre RN Active Support Systems Family Members 03/14/2022 [...] Date of Assessment Author Status Cardiac (WDL) WD 03/14/2022 9:09 AM Hugh Aguirre RN Active * Respiratory Question Answer Date of Assessment Author Status Respiratory (WDL) WD 03/14/2022 9:09 AM Marifer Aguirre RN Active [...] Status Do You Wish To Declare A Hinduism? Rastafari 03/14/2022 9:09 AM Marifer Aguirre RN Active [...] Marifer Aguirre RN Active Patient's Preferred Language? Grenadian 03/14/2022 8:54 AM Marifer Aguirre RN Active Does patient need a bacon de rinder? No 03/14/2022 8:54 AM Marifer Aguirre RN [...] Status Phone number we can reach you? [phone] 03/14/2022 9:01 AM Marifer Aguirre RN Active [...] Marifer Aguirre RN Active Patient's Preferred Language? Grenadian 03/14/2022 8:54 A M Marifer Aguirre RN Active Does patient need a bacon de rinder? No 03/14/2022 8:54 AM Marifer Aguirre RN [...] in this encounter Progress Notes * Fang Graham MA - 03/11/2022 11:55 AM EDT Lmom spoke with provider he stated its ok to have MRI in a month. We need about a week to work on auth * Leena Augustine - 03/11/2022 11:43 AM EDT Provider: Dr. Nieto Patient: Kellie Plata Call back number: [phone] Patient is requesting a call back in reference to pending MRI. Also she indicated that MRI won't beschedule for another month from now and so she is asking if provider can put order in as a Stat. Please follow up documented in this encounter Plan of Treatment Not on file documented as of this encounter Visit Diagnoses Not on filedocumented in this encounter Additional Health Concerns Infection Onset Date Last Indicated Resolved Time COVID-19 (Exposure) Comment:Patient was exposed to covid on 04/09/22 04/10/2022 04/10/2022 04/17/2022 12:51 AM EST documented as of this encounter Care Teams Insurance Biller Relationship Specialty Start Date End Date Henok Juarez PCP - General 11/15/21 documented as of this encounter
[2025-04-11 23:24] LABS: Appearance Urine Cloudy; Glucose Urine UA Negative (Negative); PH 5.5 (5.0-9.0); Specific Gravity - Urine 1.020 (1.005-1.025); UMIC TRIGGER UACC YES
--- NOTE | 2025-04-11 23:48 | ED.ABDPAIN ---
HPI - Abdominal Pain General Chief Complaint: Abdominal Pain Stated Complaint: sever left lower abd pain Time Seen by Provider: 04/11/25 21:15 Source: patient and family Mode of arrival: ambulatory Limitations: no limitations History of Present Illness ED Provider: Dr. 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 States she had pot roast for dinner with her mother who is not sick. [place] well until she was driving home then developed severe, sudden onset left lower quadrant abdominal pain that she describes as a stabbing sensation. Pain is nonradiating. Constant since it started but improved after Toradol here in the emergency department. Has been feeling well prior to tonight. Has plans to go on vacation where she is flying later today. Bowel movements have been loose but not specifically diarrhea. No hematochezia or melena. No dysuria or hematuria. She does have a history of kidney stones and feels this pain is different. Typically has pain in her back when she has a kidney stone. Denies chest pain, difficulty breathing, fevers, cough or cold-type symptoms. Related Data Previous Rx's ?Medication ?Instructions ?Recorded dicyclomine 20 mg tablet 20 mg PO TID #10 tabs 04/12/25 ondansetron 4 mg disintegrating 4 mg PO Q8H PRN nausea and 04/12/25 tablet vomiting #10 tabs Allergies Allergy/AdvReac Type Severity Reaction Status Date / Time No Known Allergies Allergy Verified 04/11/25 21:05 Review of Systems Review of Systems as per HPI, full review of systems performed and negative but for the above mentioned pertinent positives and negatives. Physical Exam ED Exam Exam: GENERAL: Ill-Appearing, appears uncomfortable. SKIN: Normal skin color for ethnicity, warm, dry, no rashes noted. HEENT: Normocephalic, atraumatic, no stridor, dry mucous membranes, dentition intact, EOMI, PERRLA. NECK: Soft, supple, full ROM, midline structures nontender, no step-offs, no deformities, no lymphadenopathy. CHEST: Heart regular tachycardia, no murmurs, symmetric chest rise and fall. PULMONARY: Clear to auscultation bilaterally, diminished at the bases, no labored breathing, no wheezes/rhales/rhonchi. ABDOMINAL: Soft, nondistended, left lower quadrant tenderness to palpation with voluntary guarding, positive bowel sounds in all quadrants, multiple surgical scars, no palpable mass. : Deferred. MUSCULOSKELETAL: Normal tone, full range of motion, no deformities, no peripheral edema. NEURO: Alert and oriented x3, CN II through XII intact, equal strength and sensation bilateral upper and lower extremities, no focal neurologic deficits. PSYCHIATRIC: Flat affect, fluid speech, good eye contact and appropriate demeanor. Vital Signs: Vital Signs - 24 hr 04/11/25 21:02 04/12/25 00:02 04/12/25 01:05 Temperature 98 F 97.9 F Pulse Rate 114 H 98 97 Respiratory Rate 22 H 15 16 Blood Pressure 146/63 H 137/75 153/66 H Pulse Oximetry 100 99 98 Oxygen Delivery Method Room Air Room Air 04/12/25 01:20 Temperature 97.9 F Pulse Rate 97 Respiratory Rate 16 Blood Pressure 153/66 H Pulse Oximetry 98 Oxygen Delivery Method Room Air BMI result Body Mass Index 22.1 Medical Decision Making Medical Decision Making MDM Narrative: This patient presents today with a chief complaint of abdominal pain. Differential diagnosis for this patient is broad. It includes kidney stones, UTI, appendicitis, cholecystitis, bowel obstruction, peptic ulcer disease, pyelonephritis, vascular pathology, among many others. A broad-based workup based on history and physical examination was obtained. Patient has a slight leukocytosis with neutrophilic predominance, elevated heart rate but no fever. She meets criteria for SIRS given her white blood cell count and heart rate but she is not currently septic. Patient medicated with fluids, Toradol and Zofran. Reports significant improvement in abdominal pain. Bedside ultrasound of the remaining left kidney does not show evidence of significant hydronephrosis. I am unable to visualize the distal ureters going into the bladder as she recently emptied her bladder. Plan for CT of the abdomen and pelvis to rule out an obstructing stone. Urine is clean. No evidence of infection. CT shows enteritis. Patient is requesting discharge as she has plans to travel today. Provided with a prescriptions for Zofran and dicyclomine. Discussed return precautions at length. Discharged home in stable condition. Differential Diagnosis Differential Diagnoses: The differential diagnosis associated with the presentation includes (As above) Admission/Observation Consideration of admission/observation: Escalation of care including admission/observation considered Lab Data MDM Lab Attestation statement: I reviewed the patient's lab results. 04/11/25 21:36 04/11/25 21:36 Labs: Lab Results 04/11/25 04/11/25 Range/Units 21:36 23:17 WBC 13.1 H (4.8-10.8) X10*3/uL RBC 5.28 (4.20-5.50) X10*6/uL Hgb 15.0 (12.0-16.0) g/dl Hct 47.3 H (37.0-47.0) % MCV 89.6 (80.0-98.0) fL MCH 28.4 (27.0-33.0) pg MCHC 31.7 (31.0-35.0) g/dl RDW 13.5 (11.0-16.0) % Plt Count 246 (160-400) X10*3/uL MPV 11.4 (9.4-12.3) fL Immature Gran % (Auto) 0.4 (0.0-0.4) % Neut % (Auto) 76.3 H (45-73) % Lymph % (Auto) 15.1 L (20-40) % [place] % (Auto) 6.3 (2-11) % Eos % (Auto) 1.5 (0-4) % Baso % (Auto) 0.4 (0-2) % Lymph # (Auto) 2.0 (1.2-4.9) X10*3/uL [place] # (Auto) 0.8 (0.1-1.2) X10*3/uL Eos # (Auto) 0.2 (0.0-0.4) X10*3/uL Baso # (Auto) 0.1 (0.0-0.2) X10*3/uL Abs Immat Gran (auto) 0.05 H (0.00-0.03) X10*3/uL Absolute Neuts (auto) 10.0 H (2.0-8.3) x10*3/uL Absolute Nucleated RBC 0.000 (0.0-0.012) X10*3/uL Nucleated RBC % (auto) 0.0 (0.0-0.2) /100WBC Sodium 144 (135-145) mmol/L Potassium 5.2 H (3.3-5.1) mmol/L Chloride 106 (96-108) mmol/L Carbon Dioxide 26 (22-29) mmol/L Anion Gap 17 (12-20) BUN 37 H (9-16) mg/dL Creatinine 1.90 H (0.5-1.4) mg/dL Estim Creat Clear Calc 26.4 Estimated GFR 27 Random Glucose 121 H (60-115) mg/dL Calcium 10.9 H (8.4-10.2) mg/dL Total Bilirubin 0.4 (0.0-1.0) mg/dL Direct Bilirubin 0.1 (0.0-0.5) mg/dL AST 33 H (5-31) U/L ALT 29 (0-31) U/L Alkaline Phosphatase 126 H (39-117) U/L Total Protein 8.5 H (6.5-8.0) g/dL Albumin 5.1 H (3.5-5.0) g/dL Urine Color Yellow Urine Appearance Cloudy Urine pH 5.5 (5.0-9.0) Ur Specific [place] 1.020 (1.005-1.025) Urine Protein 100 (2+) H (Neg-Trace) mg/dL Urine Glucose (UA) Negative (Negative) mg/dL Urine Ketones 15 (Negative) mg/dL Urine Blood Negative (Negative) Urine Nitrite Negative (Negative) Ur Leukocyte Esterase Trace H (Negative) Urine RBC 0-2 (0-2) /HPF Urine WBC 0-5 (0-5) /HPF Ur Squamous Epith Cells 0-2 (0-2) /HPF Urine Bacteria None Seen (None Seen) Hyaline Casts 0-2 (0-2) /LPF Radiology Impression Discussion of test interpretation with radiology: I have reviewed the radiologist's reading. Radiologist Impression: CT abdomen: No focal areas of consolidation within the lung bases. Bones are osteopenic. No acute fracture. [id number] convex left upper lumbar curvature. Patient has undergone prior sternotomy. Dense calcification of the mitral valve and coronary arteries. Dense vascular calcification extends into the thoracic aorta, abdominal aorta, renal arteries, mesenteric arteries, and iliac arteries. 6 mm densely calcified dependent gallstone within the gallbladder without gallbladder wall thickening or pericholecystic fluid. No focal hepatic lesion on the unenhanced exam. No focal splenic lesions. No pancreatic lesion. Right kidney is surgically absent. Bowel loops are seen within the nephrectomy bed. Adrenal glands are unremarkable. Compensatory hypertrophy of the left kidney. There is moderate left hydronephrosis with parapelvic cysts. 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 Several small stones are seen within the left kidney measuring up to 4 mm in size. No perinephric stranding. No ureteral calculi. No free air. CT pelvis: Moderate fluid distention of the stomach. There are fluid-filled loops of nondilated small bowel throughout the abdomen and pelvis with small bowel wall thickening. Liquid stool seen throughout the colon extending from the cecum to the rectum. Scattered diverticuli within the colon without findings of diverticulitis. IMPRESSION: 1. Several left renal calculi without acute obstructive phenomenon. No left ureteral calculi. 2. Surgically absent right kidney. 3. Fluid-filled large and small bowel throughout the abdomen and pelvis most characteristic of an infectious or inflammatory enterocolitis. Independent Historian Clinical information obtained from an independent historian. History obtained from or confirmed by: Spouse Prescription Management I considered prescription management with: Pain Medication and Other (Antiemetics) Chronic Conditions Patient?s care impacted by: Hypertension and Other (CAD, kidney stones, Wilms tumor) Medications Administered Discontinued Medications Generic Name Dose Route Start Last Admin Trade Name Freq PRN Reason Stop Dose Admin Lactated Ringer's 1,000 mls @ 999 mls/hr 04/11/25 21:57 04/11/25 23:17 Lr IV 04/11/25 22:57 Infused .Q1H1M ONE Infusion Ketorolac Tromethamine 15 mg 04/11/25 21:57 04/11/25 22:03 Ketorolac Tromethamine 15 Mg/Ml Vial IVPUSH 04/11/25 21:58 15 mg ONCE ONE Administration Ondansetron HCl 4 mg 04/11/25 21:57 04/11/25 22:03 Ondansetron Hcl 4 Mg/2 Ml Vial IVPUSH 04/11/25 21:58 4 mg ONCE ONE Administration Discharge Plan Discharge Clinical Impression: Gastroenteritis, Acute abdominal pain in left lower quadrant, SU (acute kidney injury) Patient Disposition: Home, Self-Care Instructions: Enteritis (ED) Additional Instructions: Use ondansetron as needed for nausea. Take dicyclomine for abdominal cramping. Try to force your fluids over the next several days. Stay well hydrated as you will likely develop diarrhea in the setting of gastroenteritis. Wash her hands frequently. Return to the ER with any new or worsening symptoms including: Worsening pain despite medication, fevers greater than 100?, inability to tolerate food or drink despite medication, any new symptom that concerns you. Call 911 with any medical emergency. Prescriptions: New dicyclomine 20 mg tablet 20 mg PO TID Qty: 10 0RF ondansetron 4 mg tablet,disintegrating 4 mg PO Q8H PRN (Reason: nausea and vomiting) Qty: 10 0RF Interventions: ED Discharge Assessment Last Done: 04/12/25 01:20 Discharge Date/Time: 04/12/25 01:21 Print Language: Malay
[2025-04-12 00:02] VITALS: BP 137/75; PULSE 98; RESP 15; O2SAT 99
[2025-04-12 01:05] VITALS: BP 153/66; PULSE 97; RESP 16; TEMP 36.6; O2SAT 98
[2025-04-12 01:20] VITALS: BP 153/66; PULSE 97; RESP 16; TEMP 36.6; O2SAT 98
== END 2025-04-12 01:21 | disposition home or self-care (01) ==
PROVIDERS: Emergency Provider Emergency Medicine
DX: K52.9 Noninfective gastroenteritis and colitis, unspecified (principal); N17.9 Acute kidney failure, unspecified; R10.32 Left lower quadrant pain; Z85.528 Personal history of other malignant neoplasm of kidney; Z87.442 Personal history of urinary calculi
CPT/HCPCS: 36415; 74176; 80048; 80076; 81001; 85025; 93005; 96361; 96374; 96375; 99284; 99285; J1885; J2405; J7120

== ENCOUNTER → 2025-04-11 21:25 | Outpatient (BNV) | payer OTHER, SELFPAY | PROVIDERS: Emergency Provider Emergency Medicine; Visit Provider Internal Medicine Cardiovascular Disease | DX: I51.7 Cardiomegaly (principal) | CPT/HCPCS: 93010 ==

== ENCOUNTER → 2025-04-11 23:33 | Outpatient (BNV) | payer OTHER, SELFPAY | PROVIDERS: Emergency Provider Emergency Medicine; Visit Provider Radiology Diagnostic Radiology | DX: R10.32 Left lower quadrant pain (principal) | CPT/HCPCS: 74176 ==